=== PATIENT | male | born 1970 ===

== ENCOUNTER 2018-03-23 06:21 | Day surgery (SDC) | payer OTHER ==
[2018-03-20 17:06] VITALS: BMI 30.9
--- NOTE | 2018-03-23 07:20 | CP.SDSHP ---
Same Day Surgery H & P - History Proposed Procedure: Open wedge osteotomy 1st metatarsal, cynthia bunionectomy, MPJ release with 2nd HT Pre-Op Diagnosis: R Hallux valgus deformity, Right hammertoe deformity of 2nd digit - Previous Medical/Surgical History Previous Surgical History: Gastric sleeve - Allergies Allergies: Allergies No Known Allergies Allergy (Verified 03/20/18 17:06) - Physical Exam Mental Status: Alert & Oriented x3 Neuro: WNL Heart: WNL Lungs: WNL GI: WNL - Impression Impression: Pt was seen and examined in SDS. Pt NPO status was confirmed. All pre-op testing and clearance in chart. Pt has exhausted all conservative treatment at this time and is opting for surgical intervention. Pt was explained procedure and post-operative course. All pt's questions were answered to satisfaction. No guarantees were made. Pt understands all risks, benefits and complications of procedure. Pt will follow-up with Dr. Salinas within 1 week of surgery Pt. Evaluated Today:Candidate for Anesthesia & Procedure: Yes - Date & Time Date: 03/23/18 Time: 07:38 Short Stay Discharge - Short Stay Discharge Admitting Diagnosis/Reason for Visit: M20.11/ M20.41/ Disposition: HOME/ ROUTINE Additional Instructions (Diet, Activity): -Patient in good/stable condition for discharge home -Pt to resume medications per medical reconciliation -Resume regular diet -Please keep dressing clean, dry, & intact to surgical site -Use plastic bag over bandage for showering -Wear post op shoe at all times when ambulating -Call clinic if you see signs of infection (redness, swelling, malodor) -Please make an appointment to see Dr. Salinas in office/clinic within 1 week for post-op check Progress Note/Discharge Note with Instructions: - Patient evaluated bedside in recovery s/p bunionectomy - After surgical procedure patient in NAD - (+) Void, (+) Appetite - Capillary refill time <3s and NVS intact. - Patient denies complaints at this time. - Post operative instructions and plan of care explained to patient at length. - Patient. acknowledges verbal understanding. - Patient stable for DC per podiatric surgery
--- NOTE | 2018-03-23 07:24 | CP.PCM.PN ---
Subjective - Date & Time of Evaluation Date of Evaluation: 03/23/18 Time of Evaluation: 07:20 - Subjective Subjective: SDS Surgery Note for Dr. Salinas 47 year old male patient, with no PMHx seen and evaluated in [facility] for R foot bunion deformity. Patient states that his bunion has been hurting him for several years, especially in cold weather. Patient states that he has been NPO since midnight. He states that he has had anesthesia in the past and denies any adverse reactions. Patient is aware of his proposed procedure and the post operative course. He denies any N/V/F/SOB/CP. PMHx: denies PSHx: Gastric sleeve ALL: NKDA Objective - Constitutional Appears: Non-toxic, No Acute Distress - Head Exam Head Exam: ATRAUMATIC, NORMOCEPHALIC - Extremities Exam Additional comments: RLE focused exam: Vascular: DP/PT 2/4, CFT < 3 seconds, TG WNL, mild edema appreciated to the right medial eminence Ortho: Tenderness to palpation of R medial eminence, decreased AROM and PROM to the 1st MTPJ in DF and PF. MMT 5/5 in all compartments. Hammertoe deformity to R 2nd digit. Neuro: Gross and protective sensation intact Derm: Erythema to medial eminence, no open lesions, no clinical signs of infection. Pinch callus appreciated to medial aspect of hallux. [place] noted to dorsal aspect of 2nd digit. - Neurological Exam Neurological Exam: Alert, Awake, Oriented x3 - Psychiatric Exam Psychiatric exam: Normal Affect, Normal Mood Assessment and Plan - Assessment and Plan (Free Text) Assessment: 47 year old male patient, with no PMHx seen and evaluated in [facility] for R foot bunion deformity. Plan: Pt was seen and examined in [facility] Pt NPO status was confirmed All pre-op testing and clearance in chart Pt has exhausted all conservative treatment at this time and is opting for surgical intervention Pt was explained procedure and post-operative course All pt's questions were answered to satisfaction No guarantees were made Pt understands all risks, benefits and complications of procedure Pt will follow-up with Dr. Salinas within 1 week of surgery
[2018-03-23] MEDS ORDERED: Lactated Ringer's 1,000 ML IV ONE (07:30)
[2018-03-23] MEDS ORDERED: Phenylephrine 10 mg/ml Inj ONE (07:30)
[2018-03-23] MEDS ORDERED: Propofol 10 mg/ml Inj (20 ML) ONE ×2 (07:30→10:49)
[2018-03-23] MEDS ORDERED: Succinylcholine Chloride 20 mg/ml Syr (5 ml) IV ONE (07:30)
[2018-03-23] MEDS ORDERED: Midazolam 2 MG/2 ML VIAL ONE (07:30)
[2018-03-23] MEDS ORDERED: Rocuronium 10 mg/ml (5 ml) ONE (07:30)
[2018-03-23] MEDS ORDERED: ePHEDrine 50 mg/ml Inj ONE (07:30)
[2018-03-23] MEDS ORDERED: Bupivacaine HCl 0.5% PF (30 ml) Inj ONE (07:36)
[2018-03-23] MEDS ORDERED: Lidocaine 1% Inj (20ml) ONE ×2 (07:36→08:13)
[2018-03-23] MEDS ORDERED: Bupivacaine 0.5% Inj(30mL) INFIL ONE ×2 (08:10)
[2018-03-23] MEDS ORDERED: Lidocaine 1% Inj (20ml) INFIL ONE ×2 (08:10)
--- NOTE | 2018-03-23 10:58 | PCM.SURG1 ---
Surgeon's Initial Post Op Note - Surgeon's Notes Surgeon: Dr. Kenny Salinas DPM Spinner Fixer: Dr. Anna Kessler DPM PGY-3; Dr. Nirmal Buck DPM PGY-2 Type of Anesthesia: General Endo, Local Anesthesia Administered By: Dr. Josefa STODDARD Pre-Operative Diagnosis: Right foot Hallux abducto-valgus with 2nd digit hammer toe Operative Findings: See Dictation. M: Arthrex opening base wedge L plate, 2.4mm x 18mm, 20mm, 22mm, 28 mm screw, Size 11 staple, 2-0, 3-0, 4-0 vicryl; 4-0 nylon. I: 20 cc of 0.5% Marcaine plain Post-Operative Diagnosis: Same Operation Performed: 1. Modified Mc-bride bunionectomy with opening base wedge osteotomy. 2. Pierre osteotomy Specimen/Specimens Removed: None Estimated Blood Loss: EBL {In ML}: 0 Blood Products Given: N/A Drains Used: No Drains Post-Op Condition: Good Date of Surgery/Procedure: 03/23/18 Time of Surgery/Procedure: 10:59
[2018-03-23] MEDS ORDERED: Oxycodone/Acetaminophen 5/325 mg Tab PO PRN ×2 (11:00)
[2018-03-23] MEDS ORDERED: HYDROmorphone 0.5 mg/0.5 ml ISec ONE ×2 (11:08→11:23)
[2018-03-23] MEDS: HYDROmorphone 0.5 mg/0.5 ml ISec IVP PRN ×4 (11:08→11:52)
--- NOTE | 2018-03-23 11:57 | RAD ---
Date of service: 03/23/2018 PROCEDURE: Right Foot Radiographs. HISTORY: s/p right foot surgery COMPARISON: None. FINDINGS: BONES: Prior surgery involving the first metatarsal and first proximal phalanx. Small inferior plantar calcaneal spur. JOINTS: Normal. SOFT TISSUES: Dorsal soft tissue swelling. OTHER FINDINGS: None. IMPRESSION: Postsurgical changes involving the 1st metatarsal and 1st proximal phalanx.
[2018-03-23 13:10] VITALS: RESP 18
[2018-03-23] MEDS ORDERED: Oxycodone/Acetaminophen 5/325 mg Tab PO ONE (13:50)
[2018-03-23 13:53] VITALS: BP 133/70; PULSE 78; O2SAT 20
[2018-03-23 15:26] VITALS: TEMP 98
--- NOTE | 2018-03-26 01:07 | OP ---
PROCEDURE DATE: 03/23/2018 PREOPERATIVE DIAGNOSES: 1. Right foot bunion. 2. Right foot hammertoe deformity. POSTOPERATIVE DIAGNOSES: 1. Right foot bunion. 2. Right foot hammertoe deformity. PROCEDURES PERFORMED: 1. Right foot modified Alexander osteotomy. 2. Right foot opening base wedge osteotomy. 3. Right foot Pierre osteotomy. 4. Right foot second digit hammertoe. SURGEON: Kenny Salinas DPM ASSISTANTS: Anna Kessler DPM, PGY-3; Nirmal Buck DPM, PGY-2 ANESTHESIOLOGIST: Dr. Gibson. ANESTHESIA: General. INDICATIONS: The patient is a 47-year-old male with the above-mentioned diagnoses. The patient is being treated by Dr. Salinas in his office on outpatient basis, where he has exhausted multiple forms of conservative treatment. The patient seeks surgical intervention at this time. All risks, benefits and possible complications of proposed procedure have been explained to the patient at length. The patient verbalized understanding and wishes to proceed. All questions were answered. No guarantees were given or implied. Consent was signed and n.p.o. status was confirmed prior to bringing the patient to the operating room. OPERATIVE PROCEDURE: The patient was brought into the operating room and placed on the operating room table in supine position. A well-padded pneumatic ankle tourniquet was applied to the patient's right ankle in supramalleolar position. Once general anesthesia was achieved, a local injection consisting of 20 mL of 1% lidocaine plain was given in a local block fashion to the patient's right foot. The foot was then prepped and draped in the usual sterile manner and the procedure began. Right foot modified Alexander osteotomy: Attention was directed to the dorsomedial aspect of the first metatarsal head of the right foot. Approximately a 6 cm linear longitudinal incision was made medial and parallel to the tendon of the extensor hallucis longus and involved the contour of the deformity. The incision was deepened through the subcutaneous tissue with care being taken to identify and retract all vital neurovascular structures. All bleeders were cauterized and ligated as necessary. At this time, an inverted L-type capsulotomy was performed over the dorsal aspect of the first metatarsophalangeal joint. The periosteum and capsular structures were then carefully dissected free of the osseous attachments and retracted medially and laterally thus exposing the head of the first metatarsal into the operative site. Next, utilizing a sagittal saw, the dorsal and medial prominences were resected and passed off the operative field. All edges were then smoothed down. The incision was then continued down to the first metatarsal cuneiform joint. The periosteal dissection was continued further to the level of the first metatarsal base. The periosteum was then resected off the metatarsal base. A K-wire was then used to identify the first metatarsal cuneiform joint and a glory was made approximately 1.5 cm distal to this joint. Then an oblique osteotomy was made, but the lateral hinge was kept intact. Then, osteotomes were used to open the osteotomy site. Next, a 4.0 mm Arthrex opening base wedge plate was inserted, and radiographic assessment was used to assess the plate placement. Next, BB-Taks were inserted in order to hold the plate to the bone. Next, 2.4-mm screws were inserted across the plate. Radiographic imaging was then used to assess the correction and was noted to be excellent. Intermetatarsal angle reduced compared to the second metatarsal. At the original incision, the periosteum and capsular structures were retracted medially and laterally exposing the base of the proximal phalanx. Next, utilizing a sagittal saw, dorsal to plantar proximal osteotomy was created in the proximal phalanx to the right hallux. A wedge of bone was resected and passed off the operative field. Using a double prong drill guide positioned over the distal aspect of the osteotomy, the first hole was drilled and then the second. Next, the Synthes staple was then inserted. The surgical site was then irrigated with copious amounts of normal sterile saline. DBM was inserted across the opening base wedge osteotomy site. Right foot second digit hammertoe correction: Attention was directed to the dorsal aspect of the second digit of the right foot, where a linear longitudinal incision was made overlying the proximal interphalangeal joint of the second digit. The incision was deepened through the subcutaneous tissue with care being taken to identify and retract all vital neurovascular structures. All bleeders were cauterized and ligated as necessary. At this time, a transverse capsulotomy was performed to the proximal joint of the second digit of the right foot. Head of the proximal phalanx was freed of all capsular and ligamentous structures and attachments. Utilizing an oscillating saw, the head of the proximal phalanx was retracted and passed off the operative field. The surgical site was then irrigated with copious amounts of normal sterile saline. The deep closure was then obtained with #2-0, #3-0 and #4-0 Vicryl, and the skin was reapproximated with #4-0 and #5-0 Monocryl. Postoperative injection consisting of 18 mL of 0.5% Marcaine plain was given in a local block fashion. Postoperative bandages included Xeroform, 4 x 4's, Mega and a well-padded posterior splint. POSTOPERATIVE CONDITION: The patient tolerated the anesthesia and procedure well with no apparent complications or complaints. The patient was escorted from the operating room to the recovery room with vital signs stable and neurovascular structures intact. The patient will be followed by Dr. Salinas in his office on an outpatient basis. Anna Kessler DPM Kenny Salinas DPM
== END 2018-03-23 15:00 | disposition home or self-care (01) ==
LOC: H.OPSURG 06:21
PROVIDERS: ATTEND Podiatrist Foot & Ankle Surgery
DX: M20.11 Hallux valgus (acquired), right foot (principal); M20.41 Other hammer toe(s) (acquired), right foot; E78.5 Hyperlipidemia, unspecified; K21.9 Gastro-esophageal reflux disease without esophagitis
CPT/HCPCS: 28285; 28298; 73630; 97161; G8978; G8979; G8980; J0690; J1170; J2001; J2250; J2370; J2405; J2704; J3010; J7120